=== PATIENT | female | born 1950 | race Caucasian/White ===

== ENCOUNTER 2022-07-28 09:26 | Day surgery (SDC) | payer OTHER, MEDICARE ==
[2022-07-25 15:05] VITALS: BMI 25.2
[2022-07-28 11:52] VITALS: RESP 20; TEMP 97.8
[2022-07-28 11:56] VITALS: BP 109/68; PULSE 60
== END 2022-07-28 11:59 | disposition home or self-care (01) ==
LOC: FASU-ENDO 09:26
PROVIDERS: ATTEND Internal Medicine Gastroenterology
PROC: 0DJD8ZZ Inspection of Lower Intestinal Tract, Via Natural or Artificial Opening Endoscopic (ICD-10-PCS; principal; 2022-07-28 11:01)
DX: Z12.11 Encounter for screening for malignant neoplasm of colon (principal)